=== PATIENT | female | born 1995 | race Caucasian/White ===

== ENCOUNTER → 2019-11-27 11:19 | Outpatient (BNVA) | payer MEDICAID, SELFPAY | PROVIDERS: Family Provider Internal Medicine; PCP Internal Medicine; Visit Provider Specialist | DX: G62.9 Polyneuropathy, unspecified (principal); E11.40 Type 2 diabetes mellitus with diabetic neuropathy, unspecified; F17.210 Nicotine dependence, cigarettes, uncomplicated | CPT/HCPCS: 99214 ==

== ENCOUNTER → 2020-01-14 14:30 | Outpatient (BNVA) | payer MEDICAID, SELFPAY | PROVIDERS: Family Provider Internal Medicine; PCP Internal Medicine; Visit Provider Internal Medicine | DX: E03.9 Hypothyroidism, unspecified (principal); M77.9 Enthesopathy, unspecified; E11.40 Type 2 diabetes mellitus with diabetic neuropathy, unspecified | CPT/HCPCS: 80053; 83036; 84443; 85025 ==

== ENCOUNTER → 2020-10-01 11:00 | Outpatient (BNVA) | payer MEDICAID, SELFPAY | PROVIDERS: Family Provider Internal Medicine; PCP Internal Medicine; Visit Provider Internal Medicine | DX: Z00.00 Encounter for general adult medical examination without abnormal findings (principal); E11.43 Type 2 diabetes mellitus with diabetic autonomic (poly)neuropathy; K31.84 Gastroparesis; K21.9 Gastro-esophageal reflux disease without esophagitis | CPT/HCPCS: 80053; 83036; 83550; 84443; 85025 ==

== ENCOUNTER → 2021-01-26 11:39 | Outpatient (BNVA) | payer MEDICARE, MEDICAID, SELFPAY | PROVIDERS: PCP Internal Medicine; Visit Provider Internal Medicine | DX: E11.69 Type 2 diabetes mellitus with other specified complication (principal); R19.7 Diarrhea, unspecified; E11.43 Type 2 diabetes mellitus with diabetic autonomic (poly)neuropathy; K31.84 Gastroparesis; E11.40 Type 2 diabetes mellitus with diabetic neuropathy, unspecified; Z96.41 Presence of insulin pump (external) (internal); Z79.4 Long term (current) use of insulin | CPT/HCPCS: 82951; 83036; 84681 ==

== ENCOUNTER 2021-01-29 07:47 | Outpatient (CLI) | payer MEDICARE, MEDICAID, SELFPAY ==
--- NOTE | 2021-01-29 | MR_ITS ---
WS: [id number] MRI LEFT SHOULDER HISTORY: ACUTE PAIN OF LEFT SHOULDER COMPARISON: None available. TECHNIQUE: Multiplanar sequences of the shoulder joint are submitted. Very small osteophyte at the distal clavicle. Small amount of fluid in the subacromial and subdeltoid bursa. No os acromion. Biceps tendon is in normal position. Mild tendinopathy with thickening of the distal supraspinatus tendon but there is no retraction. No f ull-thickness tear is identified. There is adjacent fluid along the subdeltoid bursa. There is also i ncreased fluid along the subscapularis tendon but the tendon appears intact. No muscle atrophy or josue ma. Small amount of increased fluid adjacent to the coracoid process. No fractures or marrow edema. N o labral abnormalities. MR/MR shoulder LT wo con* [id number] IMPRESSION: 1. Mild tendinopathy distal supraspinatus tendon without tear. 2. Moderate amount of increased fluid in the subacromial and subdeltoid bursa and along the subscapularis tendon. No discrete tears are identified despite th e amount of increased fluid.
== END 2021-01-29 07:48 | disposition home or self-care (01) ==
PROVIDERS: PCP Internal Medicine; Visit Provider Nurse Practitioner Family
DX: M25.512 Pain in left shoulder (principal)
CPT/HCPCS: 73221

== ENCOUNTER 2021-04-15 09:22 | Outpatient (CLI) | payer MEDICARE, MEDICAID, SELFPAY ==
--- NOTE | 2021-04-15 09:32 | NM_ITS ---
WS: [id number] NUCLEAR MEDICINE HIDA SCAN WITH GALLBLADDER EJECTION FRACTION HISTORY: ABD PAIN COMPARISON: 06/02/2015 TECHNIQUE: The patient was intravenously injected with 7.9 mCi of TC99m Mebrofenin. Immediate imaging over the right upper quadrant was followed by 5 minute image and additional images for a total of 60 minutes. Normal uptake of radiotracer throughout the liver. Activity identified in the gallbladder at 15 minutes and well distended by 60 minutes. Activity in the proximal small bowel was seen by 20 minutes. Good washout of the radiotracer from the liver by 60 minutes. The patient then drank 8 ounces of Ensure Plus. Ejection fraction at 60 minutes was 64%. Normal GB ej ection fraction is 35-75%. Post fatty meal symptoms: None. NM/NM hepatobiliary w phar* [id number] IMPRESSION: 1. Normal HIDA scan. 2. Normal gallbladder ejection fraction.
== END 2021-04-15 09:23 | disposition home or self-care (01) ==
LOC: NM 09:23
PROVIDERS: PCP Internal Medicine; Visit Provider Nurse Practitioner Family
DX: R10.11 Right upper quadrant pain (principal)
CPT/HCPCS: 78227; A9537

== ENCOUNTER → 2021-05-18 15:47 | Outpatient (BNVA) | payer MEDICARE, MEDICAID, SELFPAY | PROVIDERS: PCP Internal Medicine; Visit Provider Internal Medicine | DX: R23.2 Flushing (principal); L81.9 Disorder of pigmentation, unspecified | CPT/HCPCS: 82672; 83001; 83002 ==

== ENCOUNTER → 2021-08-31 10:57 | Outpatient (BNVA) | payer MEDICARE, MEDICAID, SELFPAY | PROVIDERS: PCP Internal Medicine; Visit Provider Internal Medicine | DX: R30.0 Dysuria (principal); R41.89 Other symptoms and signs involving cognitive functions and awareness; E11.40 Type 2 diabetes mellitus with diabetic neuropathy, unspecified | CPT/HCPCS: 80053; 82607; 82746; 83036 ==

== ENCOUNTER 2021-09-08 17:05 | Outpatient (CLI) | payer MEDICARE, MEDICAID, SELFPAY ==
--- NOTE | 2021-09-08 17:30 | MR_ITS ---
WS: [id number] MRI HEAD WITHOUT CONTRAST TECHNIQUE: Sagittal T1, T2 axial, T2 axial FLAIR, axial and coronal T1 images, axial susceptibility w eighted imaging, axial diffusion weighted images, and coronal T2 images were obtained. CLINICAL INFORMATION: R23.2 - [place] COMPARISON: None. FINDINGS: No evidence of restricted diffusion to suggest acute ischemia. Ventricular system and basal cisterns are patent. No suspicious intracranial signal abnormalities. Normal vascular flow voids skull base. N ormal stapleton-white differentiation. No evidence of mass or mass effect. Normal posterior fossa. Normal vascular flow voids at the skull base. No extra-axial fluid collection s. Paranasal sinuses and mastoid air cells well aerated. Normal posterior nasopharynx and parapharyng eal fat. No hemosiderin on susceptibly weighted images. Normal optic chiasm and pituitary infundibulum. No other suspicious findings. MR/MR head wo con* [id number] IMPRESSION: 1. No evidence of restricted diffusion to suggest acute ischemia. 2. No suspicious intracranial signal abnormalities. 3. No hemosiderin on susceptibly weighted images. 4. No suspicious intracranial findings.
== END 2021-09-08 17:06 | disposition home or self-care (01) ==
LOC: RADSHAW 17:06
PROVIDERS: PCP Internal Medicine; Visit Provider Internal Medicine
DX: R23.2 Flushing (principal); R41.89 Other symptoms and signs involving cognitive functions and awareness
CPT/HCPCS: 70551

== ENCOUNTER → 2022-04-21 09:53 | Outpatient (BNVA) | payer MEDICARE, MEDICAID, SELFPAY | PROVIDERS: PCP Internal Medicine; Visit Provider Internal Medicine | DX: R41.89 Other symptoms and signs involving cognitive functions and awareness (principal); E11.43 Type 2 diabetes mellitus with diabetic autonomic (poly)neuropathy; K31.84 Gastroparesis; R19.7 Diarrhea, unspecified; E10.42 Type 1 diabetes mellitus with diabetic polyneuropathy; E87.6 Hypokalemia; E11.40 Type 2 diabetes mellitus with diabetic neuropathy, unspecified | CPT/HCPCS: 80048; 83036 ==

== ENCOUNTER → 2024-05-02 15:18 | Outpatient (BNVA) | payer MEDICARE, MEDICAID, SELFPAY | PROVIDERS: PCP Internal Medicine; Visit Provider Nurse Practitioner Family | DX: S30.91XA Unspecified superficial injury of lower back and pelvis, initial encounter (principal); X58.XXXA Exposure to other specified factors, initial encounter; H01.134 Eczematous dermatitis of left upper eyelid; H01.139 Eczematous dermatitis of unspecified eye, unspecified eyelid; D48.5 Neoplasm of uncertain behavior of skin | CPT/HCPCS: 17110; 99204 ==

== ENCOUNTER → 2024-07-04 08:32 | Outpatient (BNVA) | payer MEDICARE, MEDICAID, SELFPAY | PROVIDERS: PCP Internal Medicine; Visit Provider Nurse Practitioner Family | DX: H01.134 Eczematous dermatitis of left upper eyelid (principal); H01.139 Eczematous dermatitis of unspecified eye, unspecified eyelid; D22.39 Melanocytic nevi of other parts of face; L81.4 Other melanin hyperpigmentation | CPT/HCPCS: 99213 ==

== ENCOUNTER → 2024-12-20 09:56 | Outpatient (BNVA) | payer MEDICARE, MEDICAID, SELFPAY | PROVIDERS: PCP Internal Medicine; Visit Provider Nurse Practitioner Family | DX: H01.134 Eczematous dermatitis of left upper eyelid (principal); H01.139 Eczematous dermatitis of unspecified eye, unspecified eyelid; D22.39 Melanocytic nevi of other parts of face; L81.4 Other melanin hyperpigmentation | CPT/HCPCS: 99213 ==

== ENCOUNTER 2025-11-16 01:30 | Emergency (ER) | payer MEDICARE, MEDICAID, SELFPAY ==
--- OUTSIDE RECORDS SUMMARY | 2025-11-11 03:00 | XMS_ITS ---
Author Organization [facility] Address [address] [place] [address] Care Team Providers Care Patient Scheduling Coordinator Name Role Phone Edis Ramirez Primary Care Provider REASON FOR VISIT ALLERGY SHOT Medications Medication SIG (Take, Route, Frequency, Duration) Notes Start Date End Date Status Medrol 4 MG Tablet Therapy Pack as directed Orally as directed; Duration: 7 days 02/03/2020 Unknown Fluticasone Propionate 50 MCG/ACT Suspension 2 spray in each nostril Nasally Once a day; Duration: 30 day(s) Unknown Cyclobenzaprine HCl 10 MG Tablet 1 tablet as needed Orally TID 02/14/2022 Unknown Ondansetron 8 MG Tablet Disintegrating 1 tablet on the tongue and allow to dissolve as needed Orally as needed Unknown Medrol 4 MG Tablet Therapy Pack as directed Orally daily; Duration: 7 days 07/17/2020 Unknown dexAMETHasone 0.1 % Suspension 2 drops Ophthalmic every 12 hrs; Duration: 10 days 10/09/2023 Unknow n Erythromycin 5 MG/GM Ointment 1 application into the lower eyelid of affected eye Ophthalmic Four times a day Unknown Azelastine HCl 0.05 % Solution 1 drop into affected eye Ophthalmic Twice a day; Duration: 30 days 06/22/2023 Unknown Pseudoephedrine HCl ER 120 MG Tablet Extended Release 12 Hour 1 tablet as needed Orally every 12 hrs; Duration: 10 days 08/25/2023 Unknown Polymyxin B-Trimethoprim 06471-9.1 UNIT/ML Solution 1 drop into affected eye Ophthalmic Four times a day Unknown Fluticasone Propionate 50 MCG/ACT Suspension 1 spray in each nostril Nasally Once a day; Duration: 30 day(s) 06/03/2025 Unknown Dexcom G7 Manager Statistical Programming - Device as directed; Duration: 30 days 04/19/2023 Unknown Pantoprazole Sodium 40 mg Tablet Delayed Release TAKE ONE TABLET BY MOUTH ONCE DAILY; Duration: 90 Unknown Dexcom G7 Sensor - Miscellaneous as directed; Duration: 30 days 04/19/2023 Unknown ALPRAZolam 0.5 mg Tablet TAKE ONE TABLET as needed po q8; Duration: 30 days 03/18/2025 Unknown Insulin Aspart 100 unit/mL Solution INJECT 80 UNITS SUBCUTANEOUSLY DAILY; Duration: 30 Active Pregabalin 150 mg Capsule TAKE ONE CAPSU LE BY MOUTH EVERY MORNING, ONE capsules AT NOON, AND TWO capsules AT night; Duration: 30 02/21/2023 Active DULoxetine HCl 30 mg Capsule Delayed Release Particles TAKE ONE CAPSULE BY MOUTH EVERY DAY; Duration: 90 Active traZODone HCl 150 mg Tablet TAKE ONE TABLET BY MOUTH AT BEDTIME NEEDED FOR SLEEP; Duration: 90 Unknown Montelukast Sodium 10 mg Tablet TAKE ONE TABLET BY MOUTH DAILY; Duration: 30 Active tiZANidine HCl 6 mg Capsule TAKE ONE CAPSULE BY MOUTH EVERY 6 HOURS NEEDED FOR muscle spasticity; Duration: 30 Active Loratadine 10 mg Tablet TAKE ONE TABLET BY MOUTH EVERY DAY; Duration: 30 Active Metoclopramide HCl 5 MG Tablet 1 tablet before meals Orally 3 times a day; Duration: 30 days 10/31/2025 Active Pseudoephedrine HCl ER 120 MG Tablet Extended Release 12 Hour 1 tablet as needed Orally every 12 hrs; Duration: 10 days 07/25/2025 Active ProAir HFA 108 (90 Base) MCG/ACT Aerosol Solution 2 puff as needed Inhalation every 6 hrs; Duration: 30 days 02/03/2020 Unknown Ketotifen Fumarate 0.035 % Solution 1 drop into affected eye Ophthalmic Twice a day; Duration: 30 days Unknown Encounters Encounter Location Date Provider Diagnosis [facility] [address] [place] [id number] 11/11/2025 Edis Ramirez Environmental allergies Z91.09 and Seasonal allergies J30.2 Assessments Encounter Date Diagnosis (ICD Code) Assessment Notes Treatment Notes Treatment Clinical Notes Section Notes 11/11/2025 Environmental allergies (ICD-10 - Z91.09) Pt supplied medication for allergy injections. 0.45ml of serum A given in L arm according to directions, 0.45ml of serum B given in R arm according to directions by Chante Diaz MA 11/11/2025 Seasonal allergies (ICD-10 - J30.2) Plan Of Treatment Treatment Notes Assessment Notes Environmental allergies Pt supplied medi cation for allergy injections. 0.45ml of serum A given in L arm according to directions, 0.45ml of serum B given in R arm according to directions by Chante Diaz MA Next Appt Details Provider Name:Edis Ramirez, 11/18/2025 09:00:00 AM, [address] [place] [address], [phone], Progress Notes * Radha HOOKER MDOB: 3 (30 yo F)Acc No.[id number]:11/11/2025 Progress Note Patient: Radha Gao Provider: Munir Ramirez MD :1995 A ge:30 Y S ex:Female Date:11/11/2025 Address:[address] [place], [place] [id number] Check Out:09:49 AM [employer]IGHT [employer] Subjective: * Chief Complaints: * A LLERGY SHOT * Medications: T akingPseudoephedrine HCl ER 120 MG Tablet Extended Release 12 Hour 1 tablet as needed Orally every 12 hrs tiZANidine HCl 6 mg Capsule TAKE ONE CAPSULE BY MOUTH EVERY 6 HOURS NEEDED FOR muscle spasticity Insulin Aspart 100 unit/mL Solution INJECT 80 UNITS SUBCUTANEOUSLY DAILY DULoxetine HCl 30 mg Capsule Delayed Release Particles TAKE ONE CAPSULE BY MOUTH EVERY DAY Pregabalin 150 mg Capsule TAKE ONE CAPSULE BY MOUTH EVERY MORNING, ONE capsules AT NOON, AND TWO capsules AT night Montelukast Sodium 10 mg Tablet TAKE ONE TABLET BY MOUTH DAILY Metoclopramide HCl 5 MG Tablet 1 tablet before meals Orally 3 times a day Loratadine 10 mg Tablet TAKE ONE TABLET BY MOUTH EVERY DAY Taking Pseudoephedrine HCl ER 120 MG Tablet Extended Release 12 Hour 1 tablet as needed Orally every 12 hrs Taking tiZANidine HCl 6 mg Capsule TAKE ONE CAPSULE BY MOUTH EVERY 6 HOURS NEEDED FOR muscle spasticity Taking Insulin Aspart 100 unit/mL Solution INJECT 80 UNITS SUBCUTANEOUSLY DAILY Taking DULoxetine HCl 30 mg Capsule Delayed Release Particles TAKE ONE CAPSULE BY MOUTH EVERY DAY Taking Pregabalin 150 mg Capsule TAKE ONE CAPSULE BY MOUTH EVERY MORNING, ONE capsules AT NOON, AND TWO capsules AT night Taking Montelukast Sodium 10 mg Tablet TAKE ONE TABLET BY MOUTH DAILY Taking Metoclopramide HCl 5 MG Tablet 1 tablet before meals Orally 3 times a day Taking Loratadine 10 mg Tablet TAKE ONE TABLET BY MOUTH EVERY DAY UnknowntraZODone HCl 150 mg Tablet TAKE ONE TABLET BY MOUTH AT BEDTIME NEEDED FOR SLEEP ALPRAZolam 0.5 mg Tablet TAKE ONE TABLET as needed po q8 Dexcom G7 Sensor - Miscellaneous as directed Dexcom G7 Manager Statistical Programming - Device as directed Fluticasone Propionate 50 MCG/ACT Suspension 1 spray in each nostril Nasally Once a day Pantoprazole Sodium 40 mg Tablet Delayed Release TAKE ONE TABLET BY MOUTH ONCE DAILY Polymyxin B-Trimethoprim 71807-7.1 UNIT/ML Solution 1 drop into affected eye Ophthalmic Four times a day Erythromycin 5 MG/GM Ointment 1 application into the lower eyelid of affected eye Ophthalmic Four times a day dexAMETHasone 0.1 % Suspension 2 drops Ophthalmic every 12 hrs Pseudoephedrine HCl ER 120 MG Tablet Extended Release 12 Hour 1 tablet as needed Orally every 12 hrs Azelastine HCl 0.05 % Solution 1 drop into affected eye Ophthalmic Twice a day Cyclobenzaprine HCl 10 MG Tablet 1 tablet as needed Orally TID Medrol 4 MG Tablet Therapy Pack as directed Orally daily Ondansetron 8 MG Tablet Disintegrating 1 tablet on the tongue and allow to dissolve as needed Orally as needed Fluticasone Propionate 50 MCG/ACT Suspension 2 spray in each nostril Nasally Once a day Medrol 4 MG Tablet Therapy Pack as directed Orally as directed Ketotifen Fumarate 0.035 % Solution 1 drop into affected eye Ophthalmic Twice a day ProAir HFA 108 (90 Base) MCG/ACT Aerosol Solution 2 puff as needed Inhalation every 6 hrs Unknown traZODone HCl 150 mg Tablet TAKE ONE TABLET BY MOUTH AT BEDTIME NEEDED FOR SLEEP Unknown ALPRAZolam 0.5 mg Tablet TAKE ONE TABLET as needed po q8 Unknown Dexcom G7 Sensor - Miscellaneous as directed Unknown Dexcom G7 Manager Statistical Programming - Device as directed Unknown Fluticasone Propionate 50 MCG/ACT Suspension 1 spray in each nostril Nasally Once a day Unknown Pantoprazole Sodium 40 mg Tablet Delayed Release TAKE ONE TABLET BY MOUTH ONCE DAILY Unknown Polymyxin B- Trimethoprim 28940-5.1 UNIT/ML Solution 1 drop into affected eye Ophthalmic Four times a day Unknown Erythromycin 5 MG/GM Ointment 1 application into the lower eyelid of affected eye Ophthalmic Four times a day Unknown dexAMETHasone 0.1 % Suspension 2 drops Ophthalmic every 12 hrs Unknown Pseudoephedrine HCl ER 120 MG Tablet Extended Release 12 Hour 1 tablet as needed Orally every 12 hrs Unknown Azelastine HCl 0.05 % Solution 1 drop into affected eye Ophthalmic Twice a day Unknown Cyclobenzaprine HCl 10 MG Tablet 1 tablet as needed Orally TID Unknown Medrol 4 MG Tablet Therapy Pack as directed Orally daily Unknown Ondansetron 8 MG Tablet Disintegrating 1 tablet on the tongue and allow to dissolve as needed Orally as needed Unknown Fluticasone Propionate 50 MCG/ACT Suspension 2 spray in each nostril Nasally Once a day Unknown Medrol 4 MG Tablet Therapy Pack as directed Orally as directed Unknown Ketotifen Fumarate 0.035 % Solution 1 drop into affected eye Ophthalmic Twice a day Unknown ProAir HFA 108 (90 Base) MCG/ACT Aerosol Solution 2 puff as needed Inhalation every 6 hrs Assessment: * Assessment: 1. E nvironmental allergies - Z91.09 (Primary) 2 . S easonal allergies - J30.2 Plan: * Treatment: * Electronic signature of Devante Ramirez MD on 11/16/2025 at 01:34 AM [employer]ER Sign off status: Pending * Provider: Munir Ramirez MD Date: 01/12/2025 Generated for Naatlia frank/Noah/Tyree on: 01/17/2025 01:34 AM [employer]IGHT [employer]ER
[2025-11-16] VITALS (12 sets, daily range): BP systolic 98–154; BP diastolic 57–109; PULSE 104–117; RESP 17–20; TEMP 36.6; O2SAT 95–99
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
--- OUTSIDE RECORDS SUMMARY | 2025-11-16 01:34 | XMS_ITS | Patient Health Record ---
Author Organization [facility] Address [address] [place] [address] Care Team Providers Care Director [employer] Name Role Phone Edis Ramirez Primary Care Provider [phone] Allergies Allergen (clinical drug ingredient) Drug/Non Drug Allergy documented on EMR Reaction Allergy Type Onset Date Status tobramycin Tobramycin rash Drug Allergy 09/21/2023 Acti ve Adhesive irritation Allergy Active tramadol Tramadol itchy Drug Allergy Active Results Component Value Reference Range Flag Notes CBC w\ Auto Diff 35102 Reviewed date:06/06/2025 08:41:46 AM Interpretation:Normal Performing Lab: Notes/Report: Diagnosis Description: Type 1 diabetes mellitus with diabetic polyneuropathy WBC 9.8 4.5-11.0 X10'3 RBC 4.44 4.00-5.20 X10'6 Hgb 13.6 12.0-16.0 G/DL Hct 41.8 36.0-46.0 % MCV 94.1 80.0-100.0 FL MCH 30.6 27.0-31.0 PG MCHC 32.5 31.0-37.0 G/DL Platelet 287 150-400 X10'3 RDW-SD 43.3 35.0-49.0 FL RDW-CV 12.3 12.2-15.6 % MPV 12.3 9.2-12.0 FL HI Neutro Auto% 57.2 40.0-70.0 % Lymph Auto% 34.0 22.0-44.0 % [place] Auto% 6.2 3.0-7.0 % Eos Auto% 1.8 2.0-4.0 % LOW Baso Auto% 0.6 0.0-1.0 % Imm Gran% .2 .0-.4 % Neutro Abs 5.58 .80-7.70 Absolute Neutrophil Count 5580 NA Lymph Abs 3.32 .10-4.10 [place] Abs .61 .20-1.00 Eos Abs .18 .00-.40 Baso Abs .06 .00-.20 Imm Gran Abs .02 .00-.10 NRBC# .00 .00-.20 X10'3 NRBC% .00 .00-.20 /100 int act WBC's Comprehensive Metabolic Pane l (CMP) 22984 Reviewed date:06/06/2025 08:41:51 AM Interpretation:Normal Performing Lab: Notes/Report: Diagnosis Description: Type 1 diabetes mellitus with diabetic polyneuropathy Glucose Serum 144 71-110 MG/DL HI Testing p erformed at [facility], [address] [place] [address] [place] [address]. CLIA ID#: [id number] BUN 12 7-21 MG/DL Creat .53 .51-1.17 MG/DL G-cleosv-g-benzoquinone imine (NAPQI) is a metabolite of acetaminophen, NAPQI concentrations of apparoximately 10 mg/L correlation to toxic levels of acetaminophen demonstrates a greater than or equil to 10% change in results. NAPQI concentrations greater than this may lead to falsely depressed results for patient samples. Use of this assay is not recommended for patients undergoing treatment with phenindione, due to the potential for falsely depressed results. GFR 126.1 NA Calculation pe rformed from GFR calculator provided by the [employer]. Glomerular Filtration rate(GRF) is the best overall index of kidney function. Normal GFR varies according to age,sex, body size, and declines with age. The [employer] recommends using the CKD-EPI Creatinine Equation(2020) to estimate GFR. BUN/Creat Ratio 22.6 12.0-20.0 % HI Total Protein 6.2 5.8-8.0 G/DL Albumin 4.3 3.2-4.8 G/DL Globulin 1.9 2.3-3.5 G/DL LOW Alb/Glob 2.3 0.8-2.2 HI Calcium 9.5 8.7-10.4 MG/DL Sodium 142 136-145 MMOL/L Potassium 3.9 3.5-5.1 MMOL/L Chloride 105 98-107 MMOL/L CO2 25.8 20.0-31.0 MMOL/L Anion Gap 15 5-15 Alk Phos 74 46-116 Bili Total <.2 .3-1.2 MG/DL LOW Use of this assay is not recommended for patients undergoing treatment with eltrombopag due to the potential for falsely elevated results. AST/SGOT 17 15-37 UNIT/L ALT/SGPT 13 12-78 UNIT/L Osmo Serum,Calculated 296 280-300 MOSM/KG Hemoglobin A1c 41684 Reviewed date:06/06/2025 08:41:42 AM Interpretation:Normal Performing Lab: Notes/Report: Diagnosis Description: Type 1 diabetes mellitus with diabetic polyneuropathy Hgb A1c 6.8 3.8-6.4 % HI Interpretation Of Hgb A1c: 4.5-6.2 % nondiabetics. >7.0 % diabetics. EAG 148 NA Estimated Aver age Glucose(EAG). Thyroid Stimulating Hormone (TSH) 83695 Reviewed date:06/06/2025 08:14:20 AM Interpretation:Normal Performing Lab: Notes/Report: Diagnosis Description: Type 1 diabetes mellitus with diabetic polyneuropathy TSH 1.088 .358-3.740 MlU/ML UA Dip / Urinalysis, Routine , Manual - [id number] Reviewed date:06/30/2025 10:42:50 AM Interpretation: Performing Lab: Notes/Report: Color yellow Clarity clear Glucose - Bilirubin - Ketones - Specific Redmond 1.005 Blood +++ pH 7.5 Protein 15 Urobilinogen,Semi-Qn 0.2 Nitrite, Urine - Leukocytes 70+ Microalbumin (U) Random 8204 3 (Not yet reviewed by provider) Interpretation: Performing Lab: Notes/Report: Diagnosis Description: Proteinuria, unspecified Ur Microalbumin <3.0 .0-30.0 MG/L Ur Creat 79.8 29.0-226.0 Mal/Crea/Ratio <3.8 .0-30.0 mg Alb/g Cr Reason For Referral No Information Medications Medication SIG (Take, Route, Frequency, Duration) Notes Start Date End Date Status Fluticasone Propionate 50 MCG/ACT Suspension 1 spray in each nostril Nasally Once a day; Duration: 30 day(s) 06/03/2025 Unknown Dexcom G7 Riding Double - Device as directed; Duration: 30 days 04/19/2023 Unknown Polymyxin B-Trimethoprim 73913-4.1 UNIT/ML Solution 1 drop into affected eye Ophthalmic Four times a day Unknown Pantoprazole Sodium 40 mg Tablet Delayed Release TAKE ONE TABLET BY MOUTH ONCE DAILY; Duration: 90 Unknown Dexcom G7 Sensor - Miscellaneous as directed; Duration: 30 days 04/19/2023 Unknown ALPRAZolam 0.5 mg Tablet TAKE ONE TABLET as needed po q8; Duration: 30 days 03/18/2025 Unknown Loratadine 10 mg Tablet TAKE ONE TABLET BY MOUTH EVERY DAY; Duration: 30 Active Metoclopramide HCl 5 MG Tablet 1 tablet before meals Orally 3 times a day; Duration: 30 days 10/31/2025 Active Insulin Aspart 100 unit/mL Solution INJECT 80 UNITS SUBCUTANEOUSLY DAILY; Duration: 30 Active tiZANidine HCl 6 mg Capsule TAKE ONE CAPSULE BY MOUTH EVERY 6 HOURS NEEDED FOR muscle spasticity; Duration: 30 Active Pregabalin 150 mg Capsule TAKE ONE CAPSU LE BY MOUTH EVERY MORNING, ONE capsules AT NOON, AND TWO capsules AT night; Duration: 30 02/21/2023 Active DULoxetine HCl 30 mg Capsule Delayed Release Particles TAKE ONE CAPSULE BY MOUTH EVERY DAY; Duration: 90 Active Pseudoephedrine HCl ER 120 MG Tablet Extended Release 12 Hour 1 tablet as needed Orally every 12 hrs; Duration: 10 days 07/25/2025 Active Medrol 4 MG Tablet Therapy Pack as directed Orally as directed; Duration: 7 days 02/03/2020 Unknown Fluticasone Propionate 50 MCG/ACT Suspension 2 spray in each nostril Nasally Once a day; Duration: 30 day(s) Unknown ProAir HFA 108 (90 Base) MCG/ACT Aerosol Solution 2 puff as needed Inhalation every 6 hrs; Duration: 30 days 02/03/2020 Unknown Ketotifen Fumarate 0.035 % Solution 1 drop into affected eye Ophthalmic Twice a day; Duration: 30 days Unknown traZODone HCl 150 mg Tablet TAKE ONE TABLET BY MOUTH AT BEDTIME NEEDED FOR SLEEP; Duration: 90 Unknown Cyclobenzaprine HCl 10 MG Tablet 1 tablet as needed Orally TID 02/14/2022 Unknown Montelukast Sodium 10 mg Tablet TAKE ONE TABLET BY MOUTH DAILY; Duration: 30 Active Ondansetron 8 MG Tablet Disintegrating 1 tablet [...] 12 hrs; Duration: 10 days 08/25/2023 Unknown Immunizations Vaccine Route Administration Date Status Comme nts Flucelvax Trivalent, Syringe 0.5 mL, PF Unknown 09/30/2025 Refused Tdap IM Intramuscular 08/19/2025 Administered Social History Tobacco Use: Social History Observation Description Date Details (start date - stop date) Former Smoker NA - NA Social History Depression Screening Social Info Question Answer Notes depression screening findings Findings Negative (0 -4) 01/30/25 PHQ-9 Little interest or p sadie in doing things Not at all Feeling down, depressed, or hopeless Not at all Trouble falling or staying asleep, or sleeping t oo much Not at all Feeling tired or having little energy Several da ys Poor appetite or overeating Not at all Feeling bad about yourself, or that you are a failure, or have let yourself or your family down Not at all Trouble concentrating on thi ngs, such as reading the newspaper or watching television Not at all Moving or speaking so slowly that other people could have noticed. Or the opposite ? being so fidgety or restless that you have been moving around a lot more than usual Not at all Thoughts that you would be b kasandra off , or of hurting yourself in some way Not at all Total Score 1 Interpretation Minimal Depression Drugs/Alcohol: Social Info Question Answer Notes Alcohol Screen (Audit-C) Did you have a drink containing alcohol in the past year? No Points 0 Interpretation Negative Drugs Have you used drugs other than those for medical reasons in the past 12 months? No Comprehensive Health Assessm ent Social Info Question Answer Notes *Social Determinants of Health Has lack of transportation kept you from medical appointments, meetings, work or from getting things needed for daily living? No Recently, have you worried t hat your food would run out before you got money to buy more? No Do you feel physically and emotionally safe wher e you currently live? Yes Are you worried about losing your housing? No Tobacco Use: Social Info Question Answer Notes Tobacco Control (Standard) Tobacco use: Former smoker How long has it been since you last smoked? 1-5 years Additional Details Category Social Info Options Details Drugs/Alcohol: Do you drink alcohol? Yes zzMigrated Social History Migrated Social History Smoking Status:Never smoked tobacco (finding) Section Notes: 01/19/21 01/19/21 01/19/21 02/14/22 02/14/22 02/14/22 socially socially Dep - 10/31/24 Tob -10/31/24 Dep - 10/31/24 Tob -10/31/24 CIME Dep/tob - 01/30/25 CIME Dep/tob - 01/30/25 02/14/22 01/19/21 02/14/22 CIME Dep/tob - 01/30/25 CIME Dep/tob - 01/30/25 CIME Dep/tob - 01/30/25 CIME Dep/tob - 01/30/25 02/14/22 02/14/22 Problems Problem Type SNOMED Code ICD Code Onset Dates Problem Status W/U Status Risk Notes Problem Gastroparesis (084688555) Gastroparesis (K31.84) Active confirmed Problem Gastroesophageal reflux disease (disorder) (196239102) Chronic GERD (K21.9) Active confirmed Problem Neuropathy (902857018) Neuropathy (G62.9) Active confirmed Problem Gastroesophageal reflux disease (574593231) GERD without esophagitis (K21.9) Active confirmed Problem Chronic rhinitis (30823097) Rhinitis, unspecified type (J31.0) Active confirmed Problem Insulin pump present (finding) (852416897) Insulin pump in place (Z96.41) Active confirmed Problem Dermatitis (746007875) Periorbital dermatitis (L30.9) Active confirmed Problem Bilateral tinnitus (8394556182199) Tinnitus of both ears (H93.13) Active confirmed Problem Seasonal allergy (091778701) Seasonal allergies (J30.2) Active confirmed Problem Allergic conjunctivitis of both eyes (164412176277531) Allergic conjunctivitis of both eyes (H10.13) Active confirmed Problem Environmental allergy (885298722) Environmental allergies (Z91.09) Active confirmed Problem Allergic otitis media (55149920) Non-recurrent acute allergic otitis media of right ear (H65.111) Active confirmed Problem Atopy (571287880) Atopy (Z88.9) Active confirme d Problem Polyneuropathy due to diabetes mellitus type I (417218550) Type 1 diabetes mellitus with diabetic polyneuropathy (E10.42) Active erroneous dx Problem Polyneuropathy due to diabetes mellitus type I (807883128) Diabetic polyneuropathy associated with type 1 diabetes mellitus (E10.42) Active erroneous dx Vital Signs Heart Rate 91 /min 10/31/2025 Temperature 97.5 degrees Fahrenheit 10/31/2025 Height-cm 149.86 cm 10/31/2025 Blood pressure diastolic 74 mm Hg 10/31/2025 Oximetry 96 % 10/31/2025 Weight-kg 64.41 kg 10/31/2025 Height 59 in 10/31/2025 Blood pressure systolic 120 mm Hg 10/31/2025 Weight 142 lbs 10/31/2025 BMI 28.68 kg/m2 10/31/2025 Encounters Encounter Location Date Provider Diagnosis [facility] [address] [address] 01/30/2025 Edis Ramirez Type 1 diabetes mellitus with diabetic polyneuropathy E10.42 ; Insulin pump in place Z96.41 ; Atopy Z88.9 ; Chronic GERD K21.9 ; Depression screen Z13.31 ; Admission for laboratory examination Z01.89 and Finger pain, right M79.644 [facility] [address] [place] [address] 10/29/2025 Edis Ramirez Seasonal allergies J30.2 and Environmental allergies Z91.09 [facility] [address] [address] 05/27/2025 Edis Ramirez Seasonal allergies J30.2 and Environmental allergies Z91.09 [facility] [address] [address] 05/13/2025 Edis Ramirez Environmental allergies Z91.09 and Seasonal allergies J30.2 [facility] [address] [place] [address] 05/06/2025 Christopher Ramirez Environmental allergies Z91.09 [facility] [address] [place] [address] 04/22/2025 Christopher Ramirez Environmental allergies Z91.09 [facility] [address] [place] [address] 04/15/2025 Christopher Ramirez Environmental allergies Z91.09 [facility] [address] [place] [address] 04/07/2025 Christopher Ramirez Environmental allergies Z91.09 [facility] [address] [place] [address] 11/11/2025 Christopher Ramirez Environmental allergies Z91.09 and Seasonal allergies J30.2 [facility] [address] [place] [address] 10/14/2025 Christopher Ramirez Seasonal allergies J30.2 and Environmental allergies Z91.09 [facility] [address] [place] [address] 10/07/2025 Christopher Ramirez Environmental allergies Z91.09 and Seasonal allergies J30.2 [facility] [address] [place] [address] 09/30/2025 Edis Ramirez Encounter for immunization Z23 ; Environmental allergies Z91.09 ; Immunization not carried out because of patient refusal Z28.21 and Seasonal allergies J30.2 [facility] [address] [place] [address] 09/23/2025 Christopher Ramirez Environmental allergies Z91.09 and Seasonal allergies J30.2 [facility] [address] [place] [address] 09/16/2025 Christopher Ramirez Seasonal allergies J30.2 and Environmental allergies Z91.09 [facility] [address] [place] [address] 09/02/2025 Christopher Ramirez Seasonal allergies J30.2 and Environmental allergies Z91.09 [facility] [address] [place] [address] 08/26/2025 Christopher Ramirez Environmental allergies Z91.09 and Seasonal allergies J30.2 [facility] [address] [place] [address] 08/12/2025 Christopher Ramirez Seasonal allergies J30.2 and Environmental allergies Z91.09 [facility] [address] [place] [address] 08/05/2025 Christopher Ramirez Seasonal allergies J30.2 and Environmental allergies Z91.09 [facility] [address] [place] [address] 07/30/2025 Christopher Ramirez Seasonal allergies J30.2 and Environmental allergies Z91.09 [facility] [address] [place] [address] 07/22/2025 Christopher Ramirez Seasonal allergies J30.2 and Environmental allergies Z91.09 [facility] [address] [place] [address] 07/15/2025 Christopher Ramirez Seasonal allergies J30.2 and Environmental allergies Z91.09 [facility] [address] [place] [address] 07/08/2025 Christopher Ramirez Seasonal allergies J30.2 and Environmental allergies Z91.09 [facility] [address] [place] [address] 06/24/2025 Christopher Ramirez Seasonal allergies J30.2 and Environmental allergies Z91.09 [facility] [address] [place] [address] 06/17/2025 Christopher Ramirez Seasonal allergies J30.2 and Environmental allergies Z91.09 [facility] [address] [place] [address] 06/10/2025 Christopher Ramirez Seasonal allergies J30.2 and Environmental allergies Z91.09 [facility] [address] [address] 06/03/2025 Christvishal Ramirez Seasonal allergies J30.2 and Environmental allergies Z91.09 [facility] [address] [address] 05/20/2025 Christvishal Ramirez Environmental allergies Z91.09 and Seasonal allergies J30.2 [facility] [address] [place] [address] 08/19/2025 Edis Ramirez Bitten by alexey grant W53.21XS ; Seasonal allergies J30.2 ; Environmental allergies Z91.09 and Type 1 diabetes mellitus with diabetic polyneuropathy E10.42 [facility] [address] [place] [address] 06/30/2025 Edis Ramirez UTI symptoms R39.9 and Pyelonephritis N12 [facility] [address] [address] 04/29/2025 Edis Ramirez Type 1 diabetes mellitus with diabetic polyneuropathy E10.42 ; GERD without esophagitis K21.9 ; Diabetic polyneuropathy associated with type 1 diabetes mellitus E10.42 ; Insulin pump in place Z96.41 ; Depression screen Z13.31 and Environmental allergies Z91.09 [facility] [address] [place] [address] 11/04/2025 Edis Ramirez Type 1 diabetes mellitus with hyperglycemia E10.65 ; Seasonal allergies J30.2 and Environmental allergies Z91.09 [facility] [address] [place] [address] 10/22/2025 Edis Ramirez Seasonal allergies J30.2 ; Environmental allergies Z91.09 and Microalbuminuria R80.9 [facility] [address] [place] [address] 10/31/2025 Edis Ramirez Gastroparesis K31.84 and Type 1 diabetes mellitus with diabetic polyneuropathy E10.42 [facility] [address] [place] [address] 01/30/2025 [facility] [address] [facility] [address] [place] [address] 10/27/2025 [facility] [address] [facility] [address] [place] [address] 10/14/2025 [facility] [address] [facility] [address] [place] [address] 07/25/2025 [facility] [address] [facility] [address] [place] [address] 05/09/2025 [facility] [address] [facility] [address] [place] [address] 04/15/2025 [facility] [address] [place] [address] 03/17/2025 [facility] [address] [place] [address] 03/17/2025 [facility] Assessments Encounter Date Diagnosis (ICD Code) Assessment Notes Treatment Notes Treatment Clinical Notes Section Notes 04/07/2025 Environmental allergies (ICD-10 - Z91.09) PT supplied medication for allergy injections. 0.5ml of serum A given in left arm according to directions, 0.5ml of serum B given in right arm per directions by Dorothy Piper MA 05/06/2025 Environmental allergies (ICD-10 - Z91.09) PT supplied medication for allergy injections. 0.25ml of serum A given in left arm according to directions, 0.25ml of serum B given in right arm per directions by Desi Vasquez MA 07/08/2025 Seasonal allergies (ICD-10 - J30.2) 07/15/2025 Seasonal allergies (ICD-10 - J30.2) 08/05/2025 Seasonal allergies (ICD-10 - J30.2) 08/05/2025 Environmental allergies (ICD-10 - Z91.09) Pt supplied medication for allergy injections. 0.25ml of serum A given in left arm according to directions, 0.25ml of serum B given in R arm according to directions by Chante Diaz MA 08/12/2025 Seasonal allergies (ICD-10 - J30.2) 08/12/2025 Environmental allergies (ICD-10 - Z91.09) Pt supplied medication for allergy injections. 0.30ml of serum A given in left arm according to directions, 0.30ml of serum B given in R arm according to directions by Chante Diaz MA 09/16/2025 Seasonal allergies (ICD-10 - J30.2) 10/07/2025 Environmental allergies (ICD-10 - Z91.09) Pt supplied medication for allergy injections. 0.20ml of serum A given in L arm according to directions, 0.20ml of serum B given in R arm according to directions by Chante Diaz MA 10/14/2025 Seasonal allergies (ICD-10 - J30.2) 10/14/2025 Environmental allergies (ICD-10 - Z91.09) Pt supplied medication for allergy injections. 0.25ml of serum A given in L arm according to directions, 0.25ml of serum B given in R arm according to directions by Chante Diaz MA 10/22/2025 Seasonal allergies (ICD-10 - J30.2) 10/22/2025 Environmental allergies (ICD-10 - Z91.09) Pt supplied medication for allergy injections. 0.30ml of serum A given in L arm according to directions, 0.30ml of serum B given in R arm according to directions by Desi Vasquez MA 10/29/2025 Seasonal allergies (ICD-10 - J30.2) 10/31/2025 Type 1 diabetes mellitus with diabetic polyneuropathy (ICD-10 - E10.42) 10/31/2025 Gastroparesis (ICD-10 - K31.84) 11/04/2025 Type 1 diabetes mellitus with hyperglycemia (ICD-10 - E10.65) 11/04/2025 Seasonal allergies (ICD-10 - J30.2) 11/11/2025 Seasonal allergies (ICD-10 - J30.2) 11/11/2025 Environmental allergies (ICD-10 - Z91.09) Pt supplied medication for allergy injections. 0.45ml of serum A given in L arm according to directions, 0.45ml of serum B given in R arm according to directions by Chante Diaz MA 04/22/2025 Environmental allergies (ICD-10 - Z91.09) PT supplied medication for allergy injections. 0.15ml of serum A given in left arm according to directions, 0.15ml of serum B given in right arm per directions by Desi Vasquez MA 09/23/2025 Seasonal allergies (ICD-10 - J30.2) 09/23/2025 Environmental allergies (ICD-10 - Z91.09) Pt supplied medication for allergy injections. 0.10ml of serum A given in left arm according to directions, 0.10ml of serum B given in R arm according to directions by Chante Diaz MA 09/30/2025 Encounter for immunization (ICD-10 - Z23) 09/30/2025 Environmental allergies (ICD-10 - Z91.09) Pt supplied medication for allergy injections. 0.15ml of serum A given in L arm according to directions, 0.15ml of serum B given in R arm according to directions by Chante Diaz MA 09/02/2025 Seasonal allergies (ICD-10 - J30.2) 09/02/2025 Environmental allergies (ICD-10 - Z91.09) Pt supplied medication for allergy injections. 0.45ml of serum A given in left arm according to directions, 0.45ml of serum B given in R arm according to directions by Desi Vasquez MA 08/26/2025 Seasonal allergies (ICD-10 - J30.2) 08/26/2025 Environmental allergies (ICD-10 - Z91.09) Pt supplied medication for allergy injections. 0.40ml of serum A given in left arm according to directions, 0.40ml of serum B given in R arm according to directions by Chante Diaz MA 08/19/2025 Bitten by rudy, alexey (ICD-10 - W53.21XS) 07/22/2025 Seasonal allergies (ICD-10 - J30.2) 07/22/2025 Environmental allergies (ICD-10 - Z91.09) Pt supplied medication for allergy injections. 0.15ml of serum A given in left arm according to directions, 0.15ml of serum B given in R arm according to directions by Chante Diaz MA 06/30/2025 UTI symptoms (ICD-10 - R39.9) 06/30/2025 Pyelonephritis (ICD-10 - N12) 06/24/2025 Seasonal allergies (ICD-10 - J30.2) 07/30/2025 Seasonal allergies (ICD-10 - J30.2) 06/17/2025 Seasonal allergies (ICD-10 - J30.2) 06/10/2025 Seasonal allergies (ICD-10 - J30.2) 06/03/2025 Seasonal allergies (ICD-10 - J30.2) 05/20/2025 Seasonal allergies (ICD-10 - J30.2) 05/20/2025 Environmental allergies (ICD-10 - Z91.09) PT supplied medication for allergy injections. 0.35ml of serum A given in left arm according to directions, 0.35ml of serum B given in right arm per directions by Chante Diaz MA 05/13/2025 Seasonal allergies (ICD-10 - J30.2) 05/13/2025 Environmental allergies (ICD-10 - Z91.09) PT supplied medication for allergy injections. 0.30ml of serum A given in left arm according to directions, 0.30ml of serum B given in right arm per directions by Desi Vasquez MA 04/29/2025 Type 1 diabetes mellitus with diabetic polyneuropathy (ICD-10 - E10.42) 04/29/2025 GERD without esophagitis (ICD-10 - K21.9) 04/15/2025 Environmental allergies (ICD-10 - Z91.09) PT supplied medication for allergy injections. 0.5ml of serum A given in left arm according to directions, 0.5ml of serum B given in right arm per directions by Dorothy Piper MA 01/30/2025 Type 1 diabetes mellitus with diabetic polyneuropathy (ICD-10 - E10.42) Doing well, controlled 05/27/2025 Seasonal allergies (ICD-10 - J30.2) 01/30/[address] (ICD-10 - Z96.41) 04/29/2025 Diabetic polyneuropathy associated with type 1 diabetes mellitus (ICD-10 - E10.42) 01/30/2025 Atopy (ICD-10 - Z88.9) 05/27/2025 Environmental allergies (ICD-10 - Z91.09) PT supplied medication for allergy injections. 0.40ml of serum A given in left arm according to directions, 0.40ml of serum B given in right arm per directions by Desi Vasquez MA 06/03/2025 Environmental allergies (ICD-10 - Z91.09) PT supplied medication for allergy injections. 0.45ml of serum A given in left arm according to directions, 0.45ml of serum B given in right arm per directions by Desi Vasquez MA 06/10/2025 Environmental allergies (ICD-10 - Z91.09) PT supplied medication for allergy injections. 0.50ml of serum A given in left arm according to directions, 0.50ml of serum B given in right arm per directions by Desi Vasquez MA 06/17/2025 Environmental allergies (ICD-10 - Z91.09) PT supplied medication for allergy injections. 0.50ml of serum A given in left arm according to directions, 0.50ml of serum B given in right arm per directions by Desi Vasquez MA 07/30/2025 Environmental allergies (ICD-10 - Z91.09) Pt supplied medication for allergy injections. 0.20ml of serum A given in left arm according to directions, 0.20ml of serum B given in R arm according to directions by Desi Vasquez MA 06/24/2025 Environmental allergies (ICD-10 - Z91.09) PT supplied medication for allergy injections. 0.05ml of serum A given in left arm according to directions, 0.05ml of serum B given in right arm per directions by Desi Vasquez MA (New Vial) 08/19/2025 Seasonal allergies (ICD-10 - J30.2) 09/30/2025 Immunization not carried out because of patient refusal (ICD-10 - Z28.21) 10/07/2025 Seasonal allergies (ICD-10 - J30.2) 11/04/2025 Environmental allergies (ICD-10 - Z91.09) Pt supplied medication for allergy injections. 0.40ml of serum A given in L arm according to directions, 0.40ml of serum B given in R arm according to directions by Chante Diaz MA 10/29/2025 Environmental allergies (ICD-10 - Z91.09) Pt supplied medication for allergy injections. 0.35ml of serum A given in L arm according to directions, 0.35ml of serum B given in R arm according to directions by Desi Vasquez MA 10/22/2025 Microalbuminuria (ICD-10 - R80.9) 09/16/2025 Environmental allergies (ICD-10 - Z91.09) Pt supplied medication for allergy injections. 0.05ml of serum A given in left arm according to directions, 0.05ml of serum B given in R arm according to directions by Desi Vasquez MA - New vials of medication 07/15/2025 Environmental allergies (ICD-10 - Z91.09) PT supplied medication for allergy injections. 0.10ml of serum A given in left arm according to directions, 0.10ml of serum B given in right arm per directions by Desi Vasquez MA 07/08/2025 Environmental allergies (ICD-10 - Z91.09) PT supplied medication for allergy injections. 0.05ml of serum A given in left arm according to directions, 0.05ml of serum B given in right arm per directions by Desi Vasquez MA Missed Dose - repeat 0.05 09/30/2025 Seasonal allergies (ICD-10 - J30.2) 08/19/2025 Environmental allergies (ICD-10 - Z91.09) Pt supplied medication for allergy injections. 0.35ml of serum A given in left arm according to directions, 0.35ml of serum B given in R arm according to directions by Desi Vasquez MA 04/29/[address] (ICD-10 - Z96.41) 01/30/2025 Chronic GERD (ICD-10 - K21.9) 01/30/2025 Depression screen (ICD-10 - Z13.31) 04/29/2025 Depression screen (ICD-10 - Z13.31) 08/19/2025 Type 1 diabetes mellitus with diabetic polyneuropathy (ICD-10 - E10.42) 01/30/2025 Admission for laboratory examination (ICD-10 - Z01.89) 01/30/2025 Finger pain, right (ICD-10 - M79.644) start diclofenac 04/29/2025 Environmental allergies (ICD-10 - Z91.09) PT supplied medication for allergy injections. 0.20ml of serum A given in left arm according to directions, 0.20ml of serum B given in right arm per directions by Desi Vasquez MA 01/30/2025 Other All patient's questions are encouraged and addressed to their apparent satisfaction. They are agreeable with the proposed plan of care and deny further needs or concerns. Patient is advised to take medications as prescribed. Patient agrees to contact the clinic with any new, worsening or increase of symptons. I am happy to see patient prior to next office visit as needed for acute concerns. 04/29/2025 Other Venipuncture performed by Desi Vasquez. Left arm/hand. One attempt. Pt tolerated well, bleeding controlled with light dressing. Lab sent to [facility] via team leader surgery. 08/19/2025 Other Specialty referral given: Podiatry [ ] other specialty [ ] Discussed routine foot care with patient: No [ ] Yes [ x ] Educational material given on foot care: No [ ] Yes [ x ] I am treating this patient under a comprehensive plan of care for their diabetes and today we addressed their diabetes management. Patient Educated with : Diabetes Foot Health: Care Instructions material was printed Plan Of Treatment Pending Test Test Name Order Date Microalbumin (U) Random [id number] 10/22/2025 Next Appt Details Provider Name:Edis Maira Ramirez, 11/18/2025 09:00:00 AM, [address] [place] [address], [id number], Insurance Providers Payer Name Payer Address Payer Phone Subscriber Number Group Number Insured Name Patient Relationship to Insured Coverage Start Date Coverage End Date [place] [address] [place] [phone] [id number] Radha Hooker Self - patient is the insured [place] [address] [place] [address] [id number] aRdha Hooker Self - patient is the insured Medications Administered Medication Instructions Date of Administration Dosage Notes Ketorolac Tromethamine 02/14/2022 60 mg Rocephin 12/25/2023 1 g Rocephin 06/30/2025 1 g Medical (General) History Medical History History ICD Code anxiety diabetes GERD Surgical History Surgery Date(Month/Year) partial hysterectomy tonsilectomy adenoidectomy tubal ligation
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
[2025-11-16] MEDS: iohexol 350 mg/mL 500 mL Btl (per mL) IV (02:12)
[2025-11-16 02:33] LABS: Hematocrit 41.4 % (36-47); Hemoglobin 13.90 g/dL (11.27-16.99); Mean Corpuscular HGB Conc 33.6 g/dL (30-55); Mean Corpuscular Hemoglobin 30.9 pg (27-33); Mean Corpuscular Volume 92.0 fl (85-98); Nucleated Red Blood Cells % 0 %; Platelet Count 325 10^3/cmm (157-399); Red Blood Count 4.50 10^6/uL (3.85-5.65); White Blood Count 22.53 10^3/uL (3.29-11.43)
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
[2025-11-16 02:53] LABS: Alanine Aminotransferase 61 U/L (0-33); Albumin Level 4.3 g/dL (3.5-5.2); Alcohol Level 164 mg/dL (0-10); Alkaline Phosphatase 82 U/L (35-105); Anion Gap 18.7 (5-19); Aspartate Amino Transferase 97 U/L (0-32); Blood Urea Nitrogen 4 mg/dL (6-20); Calcium 8.8 mg/dL (8.5-10.5); Carbon Dioxide 23 mmol/L (22-29); Chloride 97 mmol/L (98-107); Globulin 2.6 g/dL (1.3-4.6); Glucose 226 mg/dL (65-115); Osmolality Calculated 284 mOsm/kg (285-295); Potassium 3.7 mmol/L (3.5-5.1); Sodium 135 mmol/L (136-145); Total Protein 6.9 g/dL (6.6-8.7)
[2025-11-16 02:54] LABS: HCG, Serum Qual Negative (Negative)
[2025-11-16] MEDS: morphine 4 mg/mL SDV 1 mL 2 MG IVP (03:35)
[2025-11-16] MEDS: ondansetron 2 mg/ML SDV 2 mL 4 MG IVP (03:35)
[2025-11-16] MEDS: morphine 4 mg/mL SDV 1 mL IVP (04:37)
[2025-11-16] MEDS: HYDROmorphone 0.5 MG/0.5 ML INJ 1 MG IVP (07:27)
--- NOTE | 2025-11-16 07:59 | PC.NURSE ---
Patients female family member at bedside and asked to step out of room for camacho cath insertion. ( prior shift nurse Carla reported 2 unsuccessful attempts) Family member upset that she is being asked to step out of room for procedure stating, I don't understand why I have to leave, they let me stay in the room before . Family member also talking on cell phone at this time. ASked her to again step out of room for the procedure. Pt is fine with this information. Jaci rn in room as well. Camacho inserted with one attempt and no complications. Pt states that she had no pain during procedure.
[2025-11-16 08:06] LABS: Glucose Urine UA Negative (Normal); Nitrate Urine Negative (Negative); Specific Gravity, Urine 1.004 (1.005-1.030)
[2025-11-16 08:09] LABS: Add Urine Microscopic? YES
--- NOTE | 2025-11-16 08:36 | PC.PHAR ---
Med rec completed via external med list provided by [email or web address]. Unknown when pt last took medications at home.
== END 2025-11-16 09:34 | disposition short-term general hospital (02) ==
PROVIDERS: Emergency Provider Family Medicine; PCP Internal Medicine
DX: S82.142A Displaced bicondylar fracture of left tibia, initial encounter for closed fracture (principal); S82.492A Other fracture of shaft of left fibula, initial encounter for closed fracture; S82.292A Other fracture of shaft of left tibia, initial encounter for closed fracture; S92.002A Unspecified fracture of left calcaneus, initial encounter for closed fracture; S92.001A Unspecified fracture of right calcaneus, initial encounter for closed fracture; S22.20XA Unspecified fracture of sternum, initial encounter for closed fracture; S22.41XA Multiple fractures of ribs, right side, initial encounter for closed fracture; S22.42XA Multiple fractures of ribs, left side, initial encounter for closed fracture; S92.101A Unspecified fracture of right talus, initial encounter for closed fracture; V89.2XXA Person injured in unspecified motor-vehicle accident, traffic, initial encounter; E11.9 Type 2 diabetes mellitus without complications; Z87.891 Personal history of nicotine dependence; F10.129 Alcohol abuse with intoxication, unspecified; Y90.6 Blood alcohol level of 120-199 mg/100 ml
CPT/HCPCS: 36415; 36416; 70450; 71260; 72125; 73590; 73610; 73630; 74177; 80053; 80307; 81001; 82962; 84703; 85025; 96361; 96374; 96375; 96376; 99285; J1171; J1885; J2270; J2405; J7030; J9999